=== PATIENT | male | born 1955 | race Caucasian/White ===

== ENCOUNTER → 2016-09-23 | Outpatient (CLI) | payer MEDICAID ==
--- NOTE | 2016-09-23 12:02 | ECHOS ---
DATE OF SERVICE: 09/23/16 TYPE OF REPORT: Stress echo INDICATIONS: PVCs BASELINE HEART RATE: 79 BASELINE BLOOD PRESSURE: 135/58 MAXIMUM HEART RATE: 155 MAXIMUM BLOOD PRESSURE: 227/87 85% MPHR 137 100% MPHR 161 METS: 10.7 MAXIMUM STAGE REACHED: 4 TOTAL EXERCISE TIME: 9:15 minutes Baseline EKG revealed a normal sinus rhythm without significant ST-T changes. The patient walked on standard Jorge protocol for a total duration of 9 minutes and 15 seconds. Resting heart rate was 78 beats per minute. Peak heart rate was 155 beats per minute. Resting blood pressure was 135/68 and peak blood pressure was 227/87. The patient had hypertensive response to exercise. He did not have any angina. In the recovery period, he had isolated PVCs. There was evidence of upsloping ST segment changes in the inferolateral leads suggestive of ischemia without symptoms of angina. There were also ventricular ectopic beats in a bigeminal fashion in the recovery. Technically this is a positive stress test with inferolateral ST segment depression without subjective symptoms of angina. Ventricular ectopy in the recovery was noted. Most of these are isolated beats. The patient was not symptomatic. Baseline echo images revealed normal wall motion, wall thickening of all segments. The lateral wall was not very well seen in the four chamber view. At peak exercise, there was augmentation of left ventricle wall motion, wall thickening of all segments suggesting that there is no evidence of stress induced ischemia on the study. However, the mid and basal lateral wall endocardium was not very well visualized. FINAL IMPRESSION: 1. Fair exercise capacity with positive stress test by EKG criteria with hypertensive response and isolated PVCs without symptoms of angina. 2. Probably normal stress echocardiogram with the mid lateral wall not being well seen since the endocardial margin was not easily evident. 3. The patient did not have any angina. 4. There was hypertensive response to exercise. MTDD
== END | disposition home or self-care (01) ==
LOC: RADNMMAIN 09:45
PROVIDERS: ATTEND Internal Medicine Interventional Cardiology
DX: I49.3 Ventricular premature depolarization (principal); I10 Essential (primary) hypertension; R94.39 Abnormal result of other cardiovascular function study
CPT/HCPCS: 93017; 93350

== ENCOUNTER → 2016-09-29 | Outpatient (CLI) | payer MEDICAID | END | disposition home or self-care (01) | LOC: RADECHMAIN 13:01 | PROVIDERS: ATTEND Internal Medicine Interventional Cardiology | DX: R00.0 Tachycardia, unspecified (principal); R00.1 Bradycardia, unspecified | CPT/HCPCS: 93225; 93226 ==

== ENCOUNTER 2021-06-19 12:52 | Day surgery (SDC) | payer MEDICAID ==
[2021-06-17 13:08] VITALS: BMI 34.2
[~2021-06-19 12:52] MED LIST: LACTATED RINGERS 1,000 ML IV SCH; LIDOCAINE 1% (10MG/ML) FOR IV START INTRADERMA PRN; ONDANSETRON 4 MG/2 ML VIAL IVP PRN
[2021-06-19 13:24] VITALS: RESP 16; TEMP 98.1
[2021-06-19] MEDS ORDERED: fentaNYL (PF) 50 MCG/ML 2 ML AMP ONE (13:48)
[2021-06-19] MEDS ORDERED: MIDAZOLAM 2 MG/2 ML VIAL ONE (13:48)
[2021-06-19] MEDS ORDERED: PROPOFOL 10 MG/ML 20 ML VIAL IV ONE (13:48)
--- NOTE | 2021-06-19 14:24 | P.OP ---
Date of Procedure: 06/19/21 Preoperative Diagnosis: Screening Postoperative Diagnosis: Polyp in transverse colon Procedure(s) Performed: Colonoscopy with hot snare polypectomy Anesthesia: MAC Surgeon: Sonny Veliz Estimated Blood Loss (ml): 0 Condition: stable Disposition: PACU Description of Procedure: Patient is brought to the Endo suite placed left lateral decubitus position underwent sedation per department of anesthesia timeout performed correct patient correct procedure correct site was verified rectal exam was performed and no gross abnormalities were noted scope was passed from the rectum to the cecum with the slowly withdrawn matured visualize all saunders of the colon on the way out and the proximal transverse colon there is a pedunculated polyp this was removed via hot snare polypectomy and suctioned the scope was then continued to be slowly withdrawn throughout the colon and no other gross abnormalities were noted the patient tolerated the procedure well there are no apparent complications.
[2021-06-19 14:46] VITALS: BP 178/95; PULSE 81
== END 2021-06-19 14:47 | disposition home or self-care (01) ==
LOC: ORWHC2ENDO 12:52
PROVIDERS: ATTEND Student in an Organized Health Care Education/Training Program
DX: Z12.11 Encounter for screening for malignant neoplasm of colon (principal); D12.3 Benign neoplasm of transverse colon
CPT/HCPCS: 45385; 88305; J2250; J3010; J2704